=== PATIENT | female | born 1990 | race Two or more races ===

== ENCOUNTER 2017-01-23 06:49 | Emergency (ER) | payer BC, MEDICAID ==
[~2017-01-23] VITALS: Ht 162.6 cm; Wt 86.2 kg
[2017-01-23 06:58] VITALS: BP 148/88
--- NOTE | 2017-01-23 06:58 | NUR ---
BIBSELF, PT AMBULATORY TO ER BED 2 PT C/O L JAW PAIN RADIATES TO L EAR, EAR ACHE X 4 DAYS. PT AOX4 RR EVEN AND UNLABORED. NO SOB NOTED. NAD NOTED. NO NVD AT THIS TIME. PT GOWNED AND PLACED ON MONITOR WAITING FOR MD LOPEZ.
--- NOTE | 2017-01-23 07:03 | NUR ---
DR. MENA AT BEDSIDE FOR EVAL.
[2017-01-23] MEDS ORDERED: IBUPROFEN 600 MG TABLET PO ONE ×2 (07:08→07:30)
== END 2017-01-23 07:15 | disposition home or self-care (01) ==
LOC: ER 06:49
DX: K08.89 Other specified disorders of teeth and supporting structures (principal); R25.2 Cramp and spasm; Z98.890 Other specified postprocedural states
CPT/HCPCS: A4606; Z7610